=== PATIENT | female | born 1985 | race Caucasian/White ===

== ENCOUNTER 2021-01-07 12:31 | Emergency (ER) | payer OTHER ==
[2021-01-07 13:19] LABS: BILIRUBIN NEGATIVE (NEGATIVE); BLOOD 1+ Ery/uL (NEGATIVE); CLARITY CLEAR (CLEAR); COLOR YELLOW (YELLOW); GLUCOSE (U) NORMAL (NORMAL); LEUKOCYTES NEGATIVE Leu/uL (NEGATIVE); NITRITE NEGATIVE (NEGATIVE); PROTEIN NEGATIVE (NEGATIVE); UROBILINOGEN 0.2 mg/dL (0.2-1.0); pH 7.5 (5.0-9.0)
[2021-01-07 13:27] LABS: URINARY RBC RARE; URINARY WBC RARE
[2021-01-07 14:40] LABS: BASOPHIL 1.4 % (0-2); EOSINOPHIL 4.8 % (0-5); HCT 42.5 % (37.0-47.0); HGB 14.3 g/dl (12.5-16.0); LYMPHOCYTE 25.2 % (15-48); MCH 31.3 pg (25.0-31.0); MCHC 33.6 g/dL (32.0-36.0); MONOCYTE 6.7 % (0-12); MPV 9.2 fL (6.0-9.5); NEUTROPHIL 61.6 % (41-80); NRBC 0; PLT 247 K/uL (150-400); RBC 4.57 M/uL (4.20-5.40); RDW 12.1 % (11.5-14.0); WBC 7.3 K/uL (4.0-10.5)
[2021-01-07 14:51] LABS: ALBUMIN 4.1 g/dL (3.4-5.0); BILIRUBIN - TOTAL 0.7 mg/dL (0.2-1.0); BUN/CREAT RATIO (CALC) 15.7 RATIO; CREATININE 0.7 mg/dL (0.51-0.95); GLOBULIN (CALCULATION) 3.4 g/dL; POTASSIUM 4.2 mmol/L (3.5-5.1); TOTAL PROTEIN 7.5 g/dL (6.4-8.2)
[2021-01-07] MEDS ORDERED: PROTONIX 40MG T40 MG PO (16:32)
[2021-01-07] MEDS ORDERED: ONDANSETRON ODT4 MG PO (16:32)
[2021-01-07] MEDS ORDERED: PEPCID AC20 MG PO (16:32)
[2021-01-30] MEDS ORDERED: CARAFATE1 GM PO (12:11)
[2021-01-30] MEDS ORDERED: PROTONIX 40MG T40 MG PO (12:11)
[2021-03-27] MEDS ORDERED: ACETAMINOPHEN325 MG PO (10:10)
== END 2021-01-07 17:18 | disposition home or self-care (01) ==
LOC: FER 12:31
PROVIDERS: Emergency Medicine
DX: K29.70 Gastritis, unspecified, without bleeding (principal); K29.80 Duodenitis without bleeding
CPT/HCPCS: 36415; 76700; 80053; 81001; 82150; 83690; 85025

== ENCOUNTER → 2021-01-30 | Day surgery (SDC) | payer OTHER ==
[~2021-01-30] VITALS: Ht 162.6 cm; Wt 69.4 kg
[~2021-01-30] MED LIST: ACETAMINOPHEN325 MG PO; ACETAMINOPHEN500 M1 PO; CARAFATE1 GM PO; COLACE100 MG PO; NEURONTIN300 MG PO; ONDANSETRON ODT4 MG PO; OXY-IR 5MG5 MG PO; PEPCID AC20 MG PO; PHENERGAN12.5 M1 PO; PROTONIX 40MG T40 MG PO
[2021-01-30 10:11] LABS: HCG (URINE) SCREEN NEGATIVE (NEGATIVE)
== END | disposition home or self-care (01) ==
LOC: FAS 09:26
PROVIDERS: Student in an Organized Health Care Education/Training Program
DX: K64.0 First degree hemorrhoids (principal); K29.81 Duodenitis with bleeding; K26.4 Chronic or unspecified duodenal ulcer with hemorrhage; K29.71 Gastritis, unspecified, with bleeding; R19.7 Diarrhea, unspecified; K21.9 Gastro-esophageal reflux disease without esophagitis; Z79.899 Other long term (current) drug therapy
CPT/HCPCS: 84703; J2250; J2704; J7120

== ENCOUNTER → 2021-03-27 | Day surgery (SDC) | payer OTHER ==
[~2021-03-27] VITALS: Ht 162.6 cm; Wt 65.8 kg
[2021-03-27 10:22] LABS: HCG (URINE) SCREEN NEGATIVE (NEGATIVE)
== END | disposition home or self-care (01) ==
LOC: FAS 09:42
PROVIDERS: Anesthesiology
DX: K26.9 Duodenal ulcer, unspecified as acute or chronic, without hemorrhage or perforation (principal); K31.9 Disease of stomach and duodenum, unspecified; K21.9 Gastro-esophageal reflux disease without esophagitis; B96.81 Helicobacter pylori [H. pylori] as the cause of diseases classified elsewhere
CPT/HCPCS: 84703; J2250; J2704; J7120

== ENCOUNTER 2021-04-10 09:14 | Day surgery (SDCO) | payer OTHER ==
[~2021-04-10] VITALS: Ht 162.6 cm; Wt 65.8 kg
[~2021-04-10 09:14] MED LIST changes: -ACETAMINOPHEN500 M1 PO; -COLACE100 MG PO; -NEURONTIN300 MG PO; -OXY-IR 5MG5 MG PO; -PHENERGAN12.5 M1 PO
[2021-04-10 10:20] LABS: BASOPHIL 1.3 % (0-2); EOSINOPHIL 4.1 % (0-5); HCT 35.9 % (37.0-47.0); HGB 12.5 g/dl (12.5-16.0); LYMPHOCYTE 28.8 % (15-48); MCH 31.1 pg (25.0-31.0); MCHC 34.8 g/dL (32.0-36.0); MCV 89.3 fL (78.0-100.0); MONOCYTE 8.3 % (0-12); MPV 9.6 fL (6.0-9.5); NEUTROPHIL 56.7 % (41-80); NRBC 0; PLT 228 K/uL (150-400); RBC 4.02 M/uL (4.20-5.40); RDW 11.9 % (11.5-14.0)
[2021-04-10 10:41] LABS: BILIRUBIN NEGATIVE (NEGATIVE); BLOOD NEGATIVE Ery/uL (NEGATIVE); CLARITY CLEAR (CLEAR); COLOR YELLOW (YELLOW); GLUCOSE (U) NORMAL (NORMAL); LEUKOCYTES NEGATIVE Leu/uL (NEGATIVE); NITRITE NEGATIVE (NEGATIVE); PROTEIN NEGATIVE (NEGATIVE); SPECIFIC GRAVITY 1.015 (1.001-1.030); UROBILINOGEN 0.2 mg/dL (0.2-1.0); pH 6.5 (5.0-9.0)
[2021-04-10 10:47] LABS: ALBUMIN 3.8 g/dL (3.4-5.0); BILIRUBIN - TOTAL 0.7 mg/dL (0.2-1.0); BUN/CREAT RATIO (CALC) 16.4 RATIO; CREATININE 0.61 mg/dL (0.51-0.95); POTASSIUM 3.6 mmol/L (3.5-5.1); TOTAL PROTEIN 6.8 g/dL (6.4-8.2)
--- NOTE | 2021-04-11 03:46 | NUR ---
0335 PT UNABLE TO VOID AFTER SEVERAL ATTEMPTS. BLADDER SCAN [address] POSEY NOTIFIED. ORDER RECEIVED TO IN AND OUT CATH PT.
--- NOTE | 2021-04-11 05:05 | NUR ---
0400 PT IN AND OUT CATHED PER MD ORDER. 550 ML CLEAR YELLOW URINE RETURNED.
[2021-04-11] MEDS ORDERED: OXY-IR 5MG5 MG PO ×2 (12:10→15:55)
[2021-04-11] MEDS ORDERED: COLACE100 MG PO ×2 (12:10→15:55)
[2021-04-11] MEDS ORDERED: PHENERGAN12.5 M1 PO ×2 (12:10→15:55)
[2021-04-11] MEDS ORDERED: ACETAMINOPHEN500 M1 PO ×2 (12:10→15:55)
[2021-04-11] MEDS ORDERED: NEURONTIN300 MG PO ×2 (12:10→15:55)
--- NOTE | 2021-04-11 16:37 | NUR ---
DISCUSSED DISCHARGE INSTRUCTIONS WITH PATIENT. PT IN STABLE CONDITION. IV REMOVED PRIOR TO DISCHARGE. OXY IR TAB PO GIVEN PRIOR TO D/C HOME WITH
== END 2021-04-11 16:39 | disposition home or self-care (01) ==
LOC: FER 09:14 → FOR 14:05 → FMS 18:19
PROVIDERS: Emergency Medicine; ADMIT Student in an Organized Health Care Education/Training Program
DX: K81.2 Acute cholecystitis with chronic cholecystitis (principal); K82.8 Other specified diseases of gallbladder; K66.0 Peritoneal adhesions (postprocedural) (postinfection); R33.9 Retention of urine, unspecified; G43.909 Migraine, unspecified, not intractable, without status migrainosus; J90 Pleural effusion, not elsewhere classified; K21.9 Gastro-esophageal reflux disease without esophagitis; Z79.899 Other long term (current) drug therapy; Z20.822 Contact with and (suspected) exposure to COVID-19
CPT/HCPCS: 36415; 80053; 81003; 83690; 85025; G0378; J0690; J1100; J1170; J1200; J1644; J2250; J2270; J2405; J2704; J2710; J3010; J7040; J7120; Q9967; U0002

== ENCOUNTER 2022-07-18 18:22 | Emergency (ER) | payer OTHER ==
[~2022-07-18 18:22] MED LIST changes: +ACETAMINOPHEN500 M1 PO; +COLACE100 MG PO; +NEURONTIN300 MG PO; +OXY-IR 5MG5 MG PO; +PHENERGAN12.5 M1 PO
[2022-07-18] MEDS ORDERED: ONDANSETRON ODT4 MG PO ×2 (19:50→20:22)
[2022-07-18] MEDS ORDERED: PHENERGAN25 M1 PO ×2 (19:50→20:22)
[2022-07-18] MEDS ORDERED: PAXLOVID 300-11 EACH PO (19:50)
[2022-07-18] MEDS ORDERED: PAXLOVID 150-11 EACH PO (20:22)
== END 2022-07-18 20:24 | disposition home or self-care (01) ==
LOC: FER 18:22
DX: U07.1 COVID-19 (principal); Z28.310 Unvaccinated for COVID-19
CPT/HCPCS: 99283